=== PATIENT | female | born 1935 | race Caucasian/White ===

== ENCOUNTER 2017-10-13 12:34 | Emergency (ER) | payer MEDICARE ==
[~2017-10-13] VITALS: Ht 172.7 cm; Wt 70.0 kg
[~2017-10-13 12:34] MED LIST: ATOR20TA9 PO; LEVO75TA PO; MELA1TAB6 PO; NAPR-856 PO; SERT50TA5 PO
[2017-10-13 12:38] VITALS: BP 109/68
[2017-10-13] MEDS ORDERED: SODIUM CHLORIDE FLUSH 10ML SYR IVF ONE (13:30)
[2017-10-13] MEDS ORDERED: SODIUM CHLORIDE 0.9% 1,000ML IVBOLUS ONE (13:30)
[2017-10-13 13:39] LABS: BASOPHILS # (AUTO) 0.01 x10^3/uL (0-0.1); BASOPHILS % (AUTO) 0 % (0-1); EOSINOPHILS % (AUTO) 2 % (1-7); HCT (SEDRATE) 41.1 % (34.6-47.8); LYMPHOCYTES # (AUTO) 2.29 x10^3/uL (1-3.4); LYMPHOCYTES % (AUTO) 36 % (22-44); MD NO; MEAN CORPUSCULAR HEMOGLOBIN 30.5 pg (27.0-34.8); MEAN CORPUSCULAR HGB CONC 33.4 g/dL (32.4-35.8); MEAN CORPUSCULAR VOLUME 91.2 fL (80-100); MEAN PLATELET VOLUME 8.3 fL (7.4-10.4); MONOCYTES # (AUTO) 0.44 x10^3/uL (0.2-0.8); MONOCYTES % (AUTO) 7 % (2-9); NEUTROPHILS # (AUTO) 3.55 x10^3/uL (1.8-6.8); NEUTROPHILS % (AUTO) 56 % (42-75); PLATELET COUNT 185 x10^3/uL (130-400); RED BLOOD COUNT 4.51 x10^6/uL (3.82-5.3); RED CELL DISTRIBUTION WIDTH 13.4 % (9.6-15.2)
[2017-10-13 13:47] LABS: INTERNATIONAL NORMALIZED RATIO 1.12 (0.93-1.1); PROTHROMBIN TIME 11.5 Seconds (9.6-11.5)
[2017-10-13 13:51] LABS: ALBUMIN 3.4 g/dL (3.4-5.0); ANION GAP 8 mmol/L (5-15); CALCIUM 9.1 mg/dL (8.5-10.1); CHLORIDE 106 mmol/L (98-107)
[2017-10-13 13:56] LABS: ALANINE AMINOTRANSFERASE 21 U/L (12-78); ALKALINE PHOSPHATASE 75 U/L (45-117); BILIRUBIN,TOTAL 1.2 mg/dL (0.2-1.0); TROPONIN I < 0.015 ng/mL (0.000-0.045)
[2017-10-13 14:02] LABS: THYROID STIMULATING HORMONE 0.157 mIU/L (0.358-3.740)
[2017-10-13 14:19] LABS: SEDIMENTATION RATE 14 mm/hr (0-20)
[2017-10-13 15:39] LABS: MICROSCOPIC AUTO
[2017-10-13 15:40] LABS: CULTURE INDICATED? YES
== END 2017-10-13 17:19 | disposition home or self-care (01) ==
LOC: ED 15:04
DX: R51 Headache (principal); E03.9 Hypothyroidism, unspecified; F32.9 Major depressive disorder, single episode, unspecified; I48.91 Unspecified atrial fibrillation; I95.1 Orthostatic hypotension; Z79.01 Long term (current) use of anticoagulants; Z95.0 Presence of cardiac pacemaker
CPT/HCPCS: 36415; 70450; 71045; 80053; 81001; 84439; 84443; 84484; 85025; 85610; 85651; 85730; 87086; 93005; 96360; 96361; 99285; J7030

== ENCOUNTER → 2017-10-27 | Outpatient (CLI) | payer MEDICARE | END | disposition home or self-care (01) | LOC: CVU 06:39 | PROVIDERS: ATTEND Internal Medicine Cardiovascular Disease | DX: I65.23 Occlusion and stenosis of bilateral carotid arteries (principal); I35.8 Other nonrheumatic aortic valve disorders; I10 Essential (primary) hypertension; E78.5 Hyperlipidemia, unspecified; I48.0 Paroxysmal atrial fibrillation; Z85.828 Personal history of other malignant neoplasm of skin | CPT/HCPCS: 93306; 93880 ==

== ENCOUNTER 2018-05-12 10:02 | Emergency (ER) | payer MEDICARE ==
[~2018-05-12] VITALS: Ht 170.2 cm; Wt 68.2 kg
[2018-05-12 12:30] VITALS: BP 136/44
== END 2018-05-12 12:37 | disposition home or self-care (01) ==
LOC: ED 12:20
DX: R07.89 Other chest pain (principal); Z86.73 Personal history of transient ischemic attack (TIA), and cerebral infarction without residual deficits; I48.91 Unspecified atrial fibrillation; E03.9 Hypothyroidism, unspecified; Z90.710 Acquired absence of both cervix and uterus; Z95.0 Presence of cardiac pacemaker
CPT/HCPCS: 71046; 93005; 99284

== ENCOUNTER → 2018-11-01 | Outpatient (CLI) | payer MEDICARE ==
[~2018-11-01] MED LIST changes: +ATOR20TA37 PO; -ATOR20TA9 PO; +SERT50TA28 PO; -SERT50TA5 PO
== END | disposition home or self-care (01) ==
LOC: CVU 09:43
PROVIDERS: ATTEND Nurse Practitioner Family
DX: I65.23 Occlusion and stenosis of bilateral carotid arteries (principal)
CPT/HCPCS: 93880

== ENCOUNTER 2019-07-26 11:46 | Observation (INO) | payer MEDICARE ==
[~2019-07-26] VITALS: Ht 170.2 cm; Wt 66.6 kg
[~2019-07-26 11:46] MED LIST changes: +APIX5TAB PO; +BUPR150T73 PO; +BUPR300T49 PO; +CITA20TA6 PO; +FLUT16SP24 NAS; +SOTA80TA PO; +VALA1000 PO
--- NOTE | 2019-07-26 12:26 | NUR ---
MILITARY TECHNOLOGY SPECIALIST: PT TO ROOM FROM LOBBY VIA W/C
[2019-07-26] MEDS ORDERED: SODIUM CHLORIDE 0.9% 1,000 ML IV ONE (13:25)
--- NOTE | 2019-07-26 13:33 | NUR ---
IV START. LABS COLLECTED. UA COLLECTED AND SENT TO LAB.
[2019-07-26 13:52] LABS: BASOPHILS # (AUTO) 0.02 x10^3/uL (0-0.1); BASOPHILS % (AUTO) 0 % (0-1); EOSINOPHILS # (AUTO) 0.11 x10^3/uL (0-0.4); EOSINOPHILS % (AUTO) 2 % (1-7); LYMPHOCYTES # (AUTO) 1.42 x10^3/uL (1-3.4); LYMPHOCYTES % (AUTO) 22 % (22-44); MD NO; MEAN CORPUSCULAR VOLUME 96.8 fL (80-100); MEAN PLATELET VOLUME 8.4 fL (7.4-10.4); MONOCYTES # (AUTO) 0.49 x10^3/uL (0.2-0.8); MONOCYTES % (AUTO) 7 % (2-9); NEUTROPHILS # (AUTO) 4.56 x10^3/uL (1.8-6.8); NEUTROPHILS % (AUTO) 69 % (42-75); PLATELET COUNT 150 x10^3/uL (130-400); RED BLOOD COUNT 3.87 x10^6/uL (3.82-5.3)
[2019-07-26 14:04] LABS: ALBUMIN 3.4 g/dL (3.4-5.0); ANION GAP 5 mmol/L (5-15); CALCIUM 9.2 mg/dL (8.5-10.1); CHLORIDE 109 mmol/L (98-107)
--- NOTE | 2019-07-26 14:06 | NUR ---
PT RESTING COMFORTABLY ON GURNEY. NADN. DAUGHTER AT BEDSIDE.
[2019-07-26 14:08] LABS: TROPONIN I < 0.015 ng/mL (0.000-0.045)
[2019-07-26 14:24] LABS: MICROSCOPIC NOT IND
[2019-07-26 14:28] LABS: CULTURE INDICATED? NO
--- NOTE | 2019-07-26 14:34 | NUR ---
ALL RESULTS ARE BACK AT THIS TIME. CHART UP FOR RECHECK.
--- NOTE | 2019-07-26 15:02 | NUR ---
MD AT BEDSIDE TO UPDATE PT AND FAMILY ON POC.
--- NOTE | 2019-07-26 16:01 | NUR ---
HOSPITALIST AT BEDSIDE.
[2019-07-26] MEDS ORDERED: NS + 20MEQ KCL 1,000 ML IV SCH (16:03)
--- NOTE | 2019-07-26 16:09 | NUR ---
REPORT GIVEN TO MANUEL DAVE.
[2019-07-26] MEDS ORDERED: DOCUSATE 100 MG CAPSULE PO PRN (16:30)
[2019-07-26] MEDS ORDERED: POLYETHYLENE GLYCOL 17 GM PACKET PO PRN (16:30)
[2019-07-26] MEDS ORDERED: ONDANSETRON ODT 4 MG PO PRN (16:30)
[2019-07-26] MEDS ORDERED: ACETAMINOPHEN 325 MG TABLET PO PRN (16:30)
[2019-07-26] MEDS ORDERED: ONDANSETRON 2MG/ML, 2ML IVPush PRN (16:30)
--- NOTE | 2019-07-26 16:30 | NUR ---
BREAK RN: PT PLACED ON BED FREEMAN.
--- NOTE | 2019-07-26 16:34 | NUR ---
BREAK RN: PT TAKEN OFF BEDPAN-VOIDED A LARGE AMOUNT. RESTING ON GURNEY. NADN. VSS. DENIES FURTHER NEEDS.
--- NOTE | 2019-07-26 17:29 | NUR ---
REPORT GIVEN TO MORELIA DAVE
[2019-07-26 18:33] VITALS: BP 165/84
[2019-07-26] MEDS: SOTALOL 80MG TABLET PO SCH (21:20)
[2019-07-26] MEDS: ATORVASTATIN 40 MG TABLET PO SCH (21:20)
[2019-07-26] MEDS: APIXABAN 5 MG TABLET PO SCH (21:20)
[2019-07-27] VITALS (9 sets, daily range): BP systolic 103–136; BP diastolic 58–74
[2019-07-27 05:14] LABS: BASOPHILS # (AUTO) 0.03 x10^3/uL (0-0.1); BASOPHILS % (AUTO) 1 % (0-1); EOSINOPHILS # (AUTO) 0.21 x10^3/uL (0-0.4); EOSINOPHILS % (AUTO) 4 % (1-7); LYMPHOCYTES # (AUTO) 1.25 x10^3/uL (1-3.4); LYMPHOCYTES % (AUTO) 25 % (22-44); MD NO; MEAN CORPUSCULAR HEMOGLOBIN 31.4 pg (27.0-34.8); MEAN CORPUSCULAR HGB CONC 33.4 g/dL (32.4-35.8); MEAN CORPUSCULAR VOLUME 94.1 fL (80-100); MONOCYTES # (AUTO) 0.53 x10^3/uL (0.2-0.8); MONOCYTES % (AUTO) 10 % (2-9); NEUTROPHILS # (AUTO) 3.09 x10^3/uL (1.8-6.8); NEUTROPHILS % (AUTO) 60 % (42-75); PLATELET COUNT 135 x10^3/uL (130-400); RED BLOOD COUNT 3.79 x10^6/uL (3.82-5.3); RED CELL DISTRIBUTION WIDTH 14.1 % (9.6-15.2)
[2019-07-27 05:20] LABS: ANION GAP 4 mmol/L (5-15); CALCIUM 8.5 mg/dL (8.5-10.1); CHLORIDE 112 mmol/L (98-107); CREATININE 0.77 mg/dL (0.55-1.02)
[2019-07-27] MEDS: LEVOTHYROXINE 88 MCG TABLET PO SCH (06:04)
[2019-07-27] MEDS: CITALOPRAM 20 MG TABLET PO SCH (08:08)
[2019-07-27] MEDS: APIXABAN 5 MG TABLET PO SCH ×2 (08:09→20:58)
[2019-07-27] MEDS: SOTALOL 80MG TABLET PO SCH ×2 (08:11→20:58)
[2019-07-27] MEDS: ATORVASTATIN 40 MG TABLET PO SCH (20:57)
[2019-07-28] VITALS (10 sets, daily range): BP systolic 93–153; BP diastolic 59–83
[2019-07-28] MEDS: LEVOTHYROXINE 88 MCG TABLET PO SCH (05:16)
[2019-07-28] MEDS: SOTALOL 80MG TABLET PO SCH ×2 (08:32→19:36)
[2019-07-28] MEDS: APIXABAN 5 MG TABLET PO SCH ×2 (08:32→19:36)
[2019-07-28] MEDS: CITALOPRAM 20 MG TABLET PO SCH (08:32)
[2019-07-28] MEDS: MIDODRINE 5 MG TABLET PO SCH ×3 (11:27→19:36)
[2019-07-28] MEDS ORDERED: IPRA30SP NAS (14:52)
[2019-07-28] MEDS ORDERED: IPRATROPIUM NASAL 0.03%, 30ML NAS PRN (15:30)
[2019-07-28] MEDS: ATORVASTATIN 40 MG TABLET PO SCH (19:36)
[2019-07-29 02:00] VITALS: BP_SYST 115; BP_SYST 145; BP_SYST 96; BP_DIAS 67; BP_DIAS 76; BP_DIAS 80
[2019-07-29] MEDS ORDERED: LEVOTHYROXINE 88 MCG TABLET PO SCH ×2 (09:18→15:57)
[2019-07-29] MEDS: CITALOPRAM 20 MG TABLET HOMEMEDPO SCH (09:19)
[2019-07-29] MEDS: APIXABAN 5 MG TABLET PO SCH ×2 (09:26→20:41)
[2019-07-29] MEDS: MIDODRINE 5 MG TABLET PO SCH ×3 (09:27→20:42)
[2019-07-29] MEDS: SOTALOL 80MG TABLET PO SCH ×2 (09:27→20:42)
[2019-07-29 09:59] VITALS: BP 132/79
[2019-07-29 11:04] VITALS: BP_SYST 107; BP_SYST 129; BP_SYST 77; BP_DIAS 42; BP_DIAS 59; BP_DIAS 69
[2019-07-29 14:45] VITALS: BP_SYST 115; BP_SYST 121; BP_SYST 83; BP_DIAS 40; BP_DIAS 64; BP_DIAS 65
[2019-07-29 15:55] VITALS: BP 119/59
[2019-07-29 19:08] VITALS: BP 155/78
[2019-07-29] MEDS ORDERED: ATORVASTATIN 40 MG TABLET PO SCH (21:00)
[2019-07-30 02:46] VITALS: BP 122/66
[2019-07-30 05:58] VITALS: BP 130/78
[2019-07-30 06:00] VITALS: BP 100/66
[2019-07-30 06:01] VITALS: BP 75/56
[2019-07-30 07:27] VITALS: BP 132/75
[2019-07-30] MEDS: APIXABAN 5 MG TABLET PO SCH (08:02)
[2019-07-30] MEDS: SOTALOL 80MG TABLET PO SCH (08:02)
[2019-07-30] MEDS: CITALOPRAM 20 MG TABLET HOMEMEDPO SCH (08:03)
[2019-07-30] MEDS: MIDODRINE 5 MG TABLET PO SCH (08:03)
[2019-07-30 09:45] VITALS: BP_SYST 100; BP_SYST 118; BP_SYST 92; BP_DIAS 62; BP_DIAS 65; BP_DIAS 69
[2019-07-30] MEDS ORDERED: SOTA80TA18 PO (10:55)
[2019-07-30] MEDS ORDERED: MIDO5TAB9 PO (10:55)
== END 2019-07-30 13:18 | disposition home or self-care (01) ==
LOC: ED 14:20 → EDIP 15:11 → 4WST 18:06 → DCLOUNGE 07-30 13:01
PROVIDERS: ADMIT Family Medicine; ATTEND Internal Medicine
DX: R55 Syncope and collapse (principal); I48.91 Unspecified atrial fibrillation; E03.9 Hypothyroidism, unspecified; I25.10 Atherosclerotic heart disease of native coronary artery without angina pectoris; I12.9 Hypertensive chronic kidney disease with stage 1 through stage 4 chronic kidney disease, or unspecified chronic kidney disease; N18.2 Chronic kidney disease, stage 2 (mild); R13.10 Dysphagia, unspecified; I65.21 Occlusion and stenosis of right carotid artery; Z95.0 Presence of cardiac pacemaker; Z86.711 Personal history of pulmonary embolism; Z90.710 Acquired absence of both cervix and uterus; Z79.01 Long term (current) use of anticoagulants; Z86.73 Personal history of transient ischemic attack (TIA), and cerebral infarction without residual deficits
CPT/HCPCS: 36415; 70498; 71045; 80048; 81003; 82040; 82533; 84484; 85025; 93005; 93880; 96360; 96361; 97162; 97166; 97530; 97535; 99284; G0378; J3480; J7030